=== PATIENT | female | born 1980 | race Caucasian/White ===

== ENCOUNTER 2021-05-17 10:16 | Emergency (ER) | payer BC ==
[~2021-05-17] VITALS: Ht 160 cm; Wt 113.4 kg
[2021-05-17] MEDS ORDERED: BUPROPION HYDROC1 GM (10:44)
[2021-05-17] MEDS ORDERED: SKELAXIN800 MG PO (14:55)
[2021-05-17] MEDS ORDERED: KETO10TA2 PO (14:55)
== END 2021-05-17 15:07 | disposition home or self-care (01) ==
LOC: ER 10:16
DX: S83.412A Sprain of medial collateral ligament of left knee, initial encounter (principal); W01.198A Fall on same level from slipping, tripping and stumbling with subsequent striking against other object, initial encounter; Y93.89 Activity, other specified; Y92.59 Other trade areas as the place of occurrence of the external cause; Y99.8 Other external cause status